=== PATIENT | male | born 1985 | race Caucasian/White ===

== ENCOUNTER 2023-07-02 19:43 | Emergency (ER) | payer OTHER, SELFPAY ==
[2023-07-02 21:35] VITALS: BP 155/114; PULSE 90; RESP 17; TEMP 37.2; O2SAT 98; BMI 32.7
--- NOTE | 2023-07-02 22:06 | ED_ITS ---
Discharge Plan Disposition Patient Disposition: Home, Self-Care Condition: Good Referrals Follow up/Referrals: Kwame Bolanos [Primary Care Provider] - See instructions Activity Restrictions/Add. Instructions Additional Instructions/Restrictions: You were evaluated in the emergency department today. At this time, we feel that you have a viral upper respiratory infection. Take Tylenol and ibuprofen every 4-6 hours as needed for pain and fever. Hydrate. Follow-up with your primary care provider. Return to the emergency department for new or worsening symptoms. Clinical Impressions Clinical Impression: Viral URI with cough Stand Alone Forms Stand Alone Forms: Work/School Release Instructions Patient Instructions: DI for Viral Upper Respiratory Infection -- Adult Discharge ED Provider: Fritz [facility] Adult HPI <STEPHAN Jimenez - Last Filed: 07/02/23 23:24> General Chief complaint: Upper Respiratory Infection Stated complaint: sore throat, SOA, cough, jessica Time Seen by Provider: 07/02/23 22:06 Mode of Arrival: Ambulatory Source of Information: Patient Limitations: No Limitations Description of Symptoms (Recalled from ER Triage Doc. by RN): shortness of air with exertion x 3 days accompanied by cough congestion, sore throat, low grade fever History of Present Illness HPI narrative: Patient reports cough congestion shortness of breath with exertion for 3 days along with subjective fever. Patient denies chest pain chills hemoptysis hematochezia melena nausea vomit diarrhea. Related Data Allergies Allergy/AdvReac Type Severity Reaction Status Date / Time nickel [NICKEL] Allergy Intermediate Verified 07/02/23 22:49 acetaminophen [ACETAMINOPHEN] Allergy Mild Verified 07/02/23 22:49 hydrocodone [HYDROCODONE] Allergy Mild Verified 07/02/23 22:49 PFSH <STEPHAN Jimenez - Last Filed: 07/02/23 23:24> PFS Disclaimer: The information contained in this section may have been updated after the patient was seen, as this information can be updated by other users. Social History (Updated 07/02/23 @ 23:24 by STEPHAN Jimenez) Smoking Status: Unknown if ever smoked alcohol intake: current current occupational status: employed Travel in the last 8 weeks: None <STEPHAN Jimenez - Last Filed: 07/02/23 23:24> ROS Obtained: Yes Systems reviewed as appropriate & no additional complaints except as documented Physical Exam <STEPHAN Jimenez - Last Filed: 07/02/23 23:24> General General appearance: alert and in no apparent distress Head Head exam: atraumatic and normal inspection Eye Eye exam: Present normal appearance, PERRL and EOMI ENT ENT exam: Present normal exam, normal oropharynx, mucous membranes moist and other (Patient has boggy congested bilateral nasal mucosa) Neck Neck exam: Present normal inspection, full ROM and trachea midline; Absent lymphadenopathy Chest Chest inspection: Present normal inspection and symmetric chest wall rise Respiratory Respiratory exam: Present normal lung sounds bilaterally; Absent respiratory distress, wheezes or accessory muscle use Cardiovascular Cardiovascular exam: Present regular rate and normal rhythm Abdominal Exam Abdominal exam: Present soft and normal bowel sounds; Absent tenderness Extremities Exam Extremities exam: Present normal inspection and full ROM Neurological Exam Neurological exam: Present alert and oriented X3 Psychiatric Psychiatric exam: Present normal affect and normal mood Skin Skin exam: Present warm, dry and normal color Medical Decision Making <STEPHAN Jimenez - Last Filed: 07/02/23 23:24> Medical Records Medical records reviewed: Yes I reviewed the patient's medical records. Aleksandr Inquiry Pt receiving controlled substance: No Vital Signs: 07/02/23 21:35 07/02/23 22:45 07/03/23 00:28 Temperature 98.9 F 98.9 F Temperature Source Oral Oral Pulse Rate 71 72 Pulse Rate [Right Brachial] 90 Respiratory Rate 17 18 18 Blood Pressure 165/114 H 126/84 Blood Pressure [Right Arm] 155/114 H Blood Pressure Mean 131 Blood Pressure Mean [Right Arm] 127 Blood Pressure Source Automatic Cuff Blood Pressure Source [Right Arm] Automatic Cuff Blood Pressure Position Sitting Blood Pressure Position [Right Arm] Sitting 02 Sat by Pulse Oximetry 98 95 Oxygen Delivery Method Room Air Room Air Room Air Lab Data Lab results reviewed: Yes I reviewed the patient's lab results. Lab Results 07/02/23 22:00: SARS-CoV-2 (PCR) Not detected, Influenza A Untype (PCR) Not detected, Influenza Type B (PCR) Not detected, Group A Strep Rapid Negative Orders (Tests/Meds): ED MEDICATIONS Discontinued Medications Generic Name Dose Route Start Last Admin Trade Name Freq PRN Reason Stop Dose Admin Albuterol/Ipratropium 3 ml 07/02/23 22:34 07/02/23 22:53 Ipratropium/Albuterol 3 Ml Neb IH 07/02/23 22:35 3 ml ONCE ONE Administration Ketorolac Tromethamine 30 mg 07/02/23 22:34 07/02/23 22:52 Ketorolac 30mg/Ml Vial IM 07/02/23 22:35 30 mg ONCE ONE Administration ORDERS Category Date Time Status Rapid PCR Covid and Flu A/B Stat Lab 07/02/23 22:00 Completed Strep Scrn Group A (Rapid) Stat Lab 07/02/23 22:00 Completed Strep Screen Confirmation Stat Micro 07/02/23 22:00 Received Medical Decision Narrative: In summary patient is a 37-year-old male who presents to the emergency depa rtment for evaluation of cough congestion and shortness of breath. Patient is hemodynamically stable upon arrival, afebrile. Physical exam is remarkable for nasal congestion erythematous posterior pharynx however patient has no tonsils to carry exudate and see no exudate otherwise, breath sounds are equal bilaterally without adventitious sounds in the remainder of his physical exam is nonfocal and unremarkable. Differential diagnosis includes viral or bacterial upper respiratory tract infection. Initial workup will be conducted with flu and COVID swabs. Initial interventions include Toradol Tylenol breathing treatment. Initial workup reviewed by me is pending at the time of 2300 <Odette Foreman DO - Last Filed: 07/03/23 00:26> Vital Signs: 07/02/23 21:35 07/02/23 22:45 07/03/23 00:28 Temperature 98.9 F 98.9 F Temperature Source Oral Oral Pulse Rate 71 72 Pulse Rate [Right Brachial] 90 Respiratory Rate 17 18 18 Blood Pressure 165/114 H 126/84 Blood Pressure [Right Arm] 155/114 H Blood Pressure Mean 131 Blood Pressure Mean [Right Arm] 127 Blood Pressure Source Automatic Cuff Blood Pressure Source [Right Arm] Automatic Cuff Blood Pressure Position Sitting Blood Pressure Position [Right Arm] Sitting 02 Sat by Pulse Oximetry 98 95 Oxygen Delivery Method Room Air Room Air Room Air Lab Data Lab Results 07/02/23 22:00: SARS-CoV-2 (PCR) Not detected, Influenza A Untype (PCR) Not detected, Influenza Type B (PCR) Not detected, Group A Strep Rapid Negative Orders (Tests/Meds): ED MEDICATIONS Discontinued Medications Generic Name Dose Route Start Last Admin Trade Name Freq PRN Reason Stop Dose Admin Albuterol/Ipratropium 3 ml 07/02/23 22:34 07/02/23 22:53 Ipratropium/Albuterol 3 Ml Neb IH 07/02/23 22:35 3 ml ONCE ONE Administration Ketorolac Tromethamine 30 mg 07/02/23 22:34 07/02/23 22:52 Ketorolac 30mg/Ml Vial IM 07/02/23 22:35 30 mg ONCE ONE Administration ORDERS Category Date Time Status Rapid PCR Covid and Flu A/B Stat Lab 07/02/23 22:00 Completed Strep Scrn Group A (Rapid) Stat Lab 07/02/23 22:00 Completed Strep Screen Confirmation Stat Micro 07/02/23 22:00 Received Medical Decision Narrative: In summary patient is a 37-year-old male who presents to the emergency department for evaluation of cough congestion and shortness of breath. Patient is hemodynamically stable upon arrival, afebrile. Physical exam is remarkable for nasal congestion erythematous posterior pharynx however patient has no tonsils to carry exudate and see no exudate otherwise, breath sounds are equal bilaterally without adventitious sounds in the remainder of his physical exam is nonfocal and unremarkable. Differential diagnosis includes viral or bacterial upper respiratory tract infection. Initial workup will be conducted with flu and COVID swabs. Initial interventions include Toradol Tylenol breathing treatment. Initial workup reviewed by me is pending at the time of 2300 DO Ahsan: I assumed care of the patient at 2300. On my assessment, the patient is resting comfortably and is feeling fine. Vitals are normal on cardiac telemetry. I feel that he likely has a viral upper respiratory infection. Swabs are negative for strep, COVID, and flu. At this time, based on reassuring exam and history, it is felt that the patient is appropriate for discharge home with instructions for supportive management. Strict return pre cautions and instructions for close outpatient follow-up were given. The patient was discharged in stable condition after all questions were answered. <Fritz Cleveland DO - Last Filed: 07/03/23 14:52> Vital Signs: 07/02/23 21:35 07/02/23 22:45 07/03/23 00:28 Temperature 98.9 F 98.9 F Temperature Source Oral Oral Pulse Rate 71 72 Pulse Rate [Right Brachial] 90 Respiratory Rate 17 18 18 Blood Pressure 165/114 H 126/84 Blood Pressure [Right Arm] 155/114 H Blood Pressure Mean 131 Blood Pressure Mean [Right Arm] 127 Blood Pressure Source Automatic Cuff Blood Pressure Source [Right Arm] Automatic Cuff Blood Pressure Position Sitting Blood Pressure Position [Right Arm] Sitting 02 Sat by Pulse Oximetry 98 95 Oxygen Delivery Method Room Air Room Air Room Air Lab Data Lab Results 07/02/23 22:00: SARS-CoV-2 (PCR) Not detected, Influenza A Untype (PCR) Not detected, Influenza Type B (PCR) Not detected, Group A Strep Rapid Negative Orders (Tests/Meds): ED MEDICATIONS Discontinued Medications Generic Name Dose Route Start Last Admin Trade Name Freq PRN Reason Stop Dose Admin Albuterol/Ipratropium 3 ml 07/02/23 22:34 07/02/23 22:53 Ipratropium/Albuterol 3 Ml Neb IH 07/02/23 22:35 3 ml ONCE ONE Administration Ketorolac Tromethamine 30 mg 07/02/23 22:34 07/02/23 22:52 Ketorolac 30mg/Ml Vial IM 07/02/23 22:35 30 mg ONCE ONE Administration ORDERS Category Date Time Status Rapid PCR Covid and Flu A/B Stat Lab 07/02/23 22:00 Completed Strep Scrn Group A (Rapid) Stat Lab 07/02/23 22:00 Completed Strep Screen Confirmation Stat Micro 07/02/23 22:00 Received Medical Decision Narrative: In summary patient is a 37-year-old male who presents to the emergency department for evaluation of cough congestion and shortness of breath. Patient is hemodynamically stable upon arrival, afebrile. Physical exam is remarkable for nasal congestion erythematous posterior pharynx however patient has no tonsils to carry exudate and see no exudate otherwise, breath sounds are equal bilaterally without adventitious sounds in the remainder of his physical exam is nonfocal and unremarkable. Differential diagnosis includes viral or bacterial upper respiratory tract infection. Initial workup will be conducted with flu and COVID swabs. Initial interventions include Toradol Tylenol breathing treatment. Initial workup reviewed by me is pending at the time of 2300 I was consulted by the SANJANA, and we discussed the complexity of the problems being addressed. I approved the treatment and management plan for this patient's care in the Emergency Department, thus performing a substantive portion of the medical decision making. Frtiz Cleveland, DO Foreman, DO: I assumed care of the patient at 2300. On my assessment, the patient is resting comfortably and is feeling fine. Vitals are normal on cardiac telemetry. I feel that he likely has a viral upper respiratory infection. Swabs are negative for strep, COVID, and flu. At this time, based on reassuring exam and history, it is felt that the patient is appropriate for discharge home with instructions for supportive management. Strict return precautions and instructions for close outpatient follow-up were given. The patient was discharged in stable condition after all questions were answered. Critical Care <STEPHAN Jimenez - Last Filed: 07/02/23 23:24> Critical Care Time Critical Care Time: No
[2023-07-02 22:45] VITALS: BP 165/114; PULSE 71; RESP 18; O2SAT 95
[2023-07-02 22:50] LABS: Coronavirus 19, PCR Not Detected (NotDetected); Influenza A, PCR Not Detected (NotDetected); Influenza B, PCR Not Detected (NotDetected)
[2023-07-02] MEDS: KETOROLAC 30MG/ML VIAL 30 MG IM (22:52)
[2023-07-02] MEDS: IPRATROPIUM/ALBUTEROL 3 ML NEB IH (22:53)
[2023-07-02 23:01] LABS: Strep Scrn Group A (Rapid) Negative (Negative)
[2023-07-03 00:28] VITALS: BP 126/84; PULSE 72; RESP 18; TEMP 37.2; O2SAT 98
== END 2023-07-03 00:29 | disposition home or self-care (01) ==
PROVIDERS: Physician Assistant; Emergency Provider Emergency Medicine; PCP Pediatrics
DX: J06.9 Acute upper respiratory infection, unspecified (principal); R06.02 Shortness of breath; R05.9 Cough, unspecified; R09.81 Nasal congestion
CPT/HCPCS: 87430; 87636; 96372; 99283